=== PATIENT | female | born 1980 | race Caucasian/White ===

== ENCOUNTER 2023-09-15 09:21 | Outpatient (AMB) | payer OTHER, SELFPAY ==
--- NOTE | 2023-09-15 09:22 | A.OFFVIS_ITS ---
Intake Vital Signs 09/15/23 09:37 Height 5 ft 9 in Weight 159 lb 4 oz BMI 23.5 BP 112/90 H Blood Pressure Location Lt brachial Position Sitting Respiration 14 Pulse 92 Pulse Source Pulse Oximeter Pulse Oximetry (%) 98 Oxygen Delivery Method Room Air Intake Visit Reasons: ENP-Lower Ex Bi Paresthesia-lvm Intake Note: Pt presents to the office for new patient evaluation for bilateral lower extremity paresthesia. Pt reports she had right inguinal herniarrhaphy in December and has since noted some muscle issues . She describes the feeling of someone pulling me from the back . She has back muscle spasms, worse when walking or going up stairs lasting a few seconds. She also c/o tremors of jonelle upper extremities and often feels as if her muscles are fatigued as if she'd exercised. She was evaluated by [facility] earlier this month. Allergies No Known Allergies Allergy (Verified 09/15/23 09:33) Medication List - Last Reconciled 09/15/23 by Kennedi James MD cholecalciferol (vitamin D3) 10 mcg PO DAILY escitalopram oxalate 5 mg PO DAILY propranolol 10 mg PO BID PRN HPI HPI Comments History of Present Illness Details 43y/o female comes for evaluation of jonelle ateral sensory symptoms in bilateral feet . It started 1 month after her right inguinal hernia surgery in Dec 2022. She was evaluated with MRI C spine LS spine and EMG which were all unremarkable.The sensations were mostly episodic and was at rest and in the later part of the day. she is not sure whether movement helped. But in February 2023 she started working out and she felt her symptoms decreased and resolved now. Now she c/o tremors in her hands - about 2 months ago. when she holds a spoon she has tremors.she also feels neck tremors , lips tremors etc. The tremors are with posture and action. It does not affect any activities but concerned that it could be parkinsons disease. she has h/o anxiety and tries to manages with yoga and meditation. 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 she has tachycardia and was seen by inside trucker and suggested betablockers [facility] Medical History (Updated 09/15/23 @ 10:43 by Kennedi James MD) Paresthesias Coarse tremors Anxiety Tachycardia Vasovagal syncope GERD (gastroesophageal reflux disease) Surgical History History of removal of ovarian cyst History of inguinal herniorrhaphy Family History Father No problems noted. Mother Hypotension Arthritis Social History Household Members: Spouse and Children Housing: Apartment Alcohol intake: current Patient Tobacco Use Status: Never used Tobacco Review of Systems Card Reports rapid heart rate Neuro Reports tremor(s) Psych Reports anxiety Physical Exam Vital Signs: Last Vital Signs Pulse 92 09/15/23 09:37 Resp 14 09/15/23 09:37 BP 112/90 H 09/15/23 09:37 Pulse Ox 98 09/15/23 09:37 Oxygen Delivery Method Room Air 09/15/23 09:37 BMI result Body Mass Index 23.5 Const General: cooperative, healthy appearing and comfortable Nutritional Appearance: average body habitus Orientation/consciousness: patient oriented x3 Limitations: no limitations Eyes Pupils: Equal, round and reactive pupils present Neuro Other: mild tightness in neck muscles with mild tilt to right No tremors Good facial expression and blink General: patient oriented x3, gait normal, tone normal, moves all extremities and no focal motor deficits Cranial nerves: Yes Facial sensation intact/muscles of mastication intact, Yes Equal, round and reactive pupils present, Yes Bilaterally intact EOM present, Yes Nystagmus not present, Yes Normal facial strength present, Yes Midline to ngue present and Yes Symmetric palate elevation present Cognition (Neuro): normal cognition Gait exam (Neuro): Normal gait present Motor exam (neuro): 5/5 motor strength present throughout and Normal motor muscle tone present throughout Deep tendon reflexes (DTR's): Right triceps reflex intensity grade: 2+, Left triceps reflex intensity grade: 2+, Rt Biceps (C5, C6): 2+, Left biceps reflex intensity grade: 2+, Right brachioradialis reflex intensity grade: 2+, Left brachioradialis reflex intensity grade: 2+, Right patellar reflex intensity grade: 2+ and Left patellar reflex intensity grade: 2+ Coordination: [id number] test normal Psych Affect: Anxious affect present Assessment & Plan Assessment & Plan (1) Coarse tremors: Comment: exaggerated physiological- mild tremors Code(s): G25.2 - Other specified forms of tremor (2) Paresthesias: Comment: resolved, her MRI C spine LS spine ad EMG were unremarkable Code(s): R20.2 - Paresthesia of skin Plan Her tremors are likely related to anxiety . No evidence of parkinsons disease I will trial her on propranolol 10mg PRN for tremors and escitalopram 5mg qd for anxiety Medications: New propranolol 10 mg PO BID PRN 60 tabs 2RF tremors escitalopram oxalate 5 mg PO DAILY 30 tabs 6RF Coding Level of Care Code New Pt Level 4 (91184) Diagnoses Coarse tremors G25.2 Paresthesias R20.2
[2023-09-15 09:37] VITALS: BP 112/90; PULSE 92; RESP 14; O2SAT 98; BMI 23.5
== END 2023-09-15 10:07 | disposition home or self-care (01) ==
PROVIDERS: Visit Provider Psychiatry & Neurology Neurology
DX: G25.2 Other specified forms of tremor (principal); R20.2 Paresthesia of skin
CPT/HCPCS: 99204

== ENCOUNTER → 2023-09-15 09:21 | Outpatient (BNVA) | payer OTHER, SELFPAY | PROVIDERS: Visit Provider Psychiatry & Neurology Neurology ==

== ENCOUNTER 2024-03-22 09:18 | Outpatient (AMB) | payer OTHER, SELFPAY ==
--- NOTE | 2024-03-22 09:33 | MHC.OFFVIS ---
Vital Signs 03/22/24 09:34 Height 5 ft 9 in Weight 167 lb BMI 24.7 BP 112/78 Blood Pressure Location Lt brachial Position Sitting Respiration 16 Pulse 81 Pulse Source Pulse Oximeter Pulse Oximetry (%) 99 Oxygen Delivery Method Room Air Intake Visit Reasons: 6M follow up-CONF Intake Note: Pt presents for 6 month follow up for tremors. Engraver Pantograph Required: No Allergies No Known Allergies Allergy (Verified 03/22/24 09:34) HPI Comments Details: 44y/o female comes for follow up. Her tremors are mild . she uses propranolol as needed and she has used it on an average of 2 times a month she tried lexapro for 2 mths and stopped. she started yoga and also a supplement Haritaki . she is anxious about drooling and worries that she has Parkinsons disease. [facility] Medical History Paresthesias Coarse tremors Anxiety Tachycardia Vasovagal syncope GERD (gastroesophageal reflux disease) Surgical History History of removal of ovarian cyst History of inguinal herniorrhaphy Family History Father No problems noted. Mother Hypotension Arthritis Social History Household Members: Spouse and Children Housing: Apartment Alcohol intake: current Patient Tobacco Use Status: Never used Tobacco Physical Exam Vital Signs: Last Vital Signs Pulse 81 03/22/24 09:34 Resp 16 03/22/24 09:34 BP 112/78 03/22/24 09:34 Pulse Ox 99 03/22/24 09:34 Oxygen Delivery Method Room Air 03/22/24 09:34 BMI result Body Mass Index 24.7 Const General: cooperative, healthy appearing and comfortable Nutritional Appearance: average body habitus Orientation/consciousness: patient oriented x3 Limitations: no limitations Eyes Pupils: Equal, round and reactive pupils present Neuro Other: mild tightness in neck muscles with mild tilt to right No tremors Good facial expression and blink General: patient oriented x3, gait normal, tone normal, moves all extremities and no focal motor deficits Cranial nerves: Yes Facial sensation intact/muscles of mastication intact, Yes Equal, round and reactive pupils present, Yes Bilaterally intact EOM present, Yes Nystagmus not present, Yes Normal facial strength present, Yes Midline tongue present and Yes Symmetric palate elevation present Cognition (Neuro): normal cognition Gait exam (Neuro): Normal gait present Motor exam (neuro): 5/5 motor strength present throughout and Normal motor muscle tone present throughout Coordination: [id number] test normal Psych Affect: Anxious affect present Assessment & Plan Assessment & Plan (1) Coarse tremors: Comment: exaggerated physiological- mild tremors Code(s): G25.2 - Other specified forms of tremor Category: Medical (2) Paresthesias: Comment: resolved, her MRI C spine LS spine ad EMG were unremarkable Code(s): R20.2 - Paresthesia of skin Category: Medical Plan Her tremors are likely related to anxiety . No evidence of parkinsons disease Continue propranolol 10mg PRN for tremors and psychotherapy .
[2024-03-22 09:34] VITALS: BP 112/78; PULSE 81; RESP 16; O2SAT 99; BMI 24.7
== END 2024-03-22 09:55 | disposition home or self-care (01) ==
PROVIDERS: PCP Family Medicine; Visit Provider Psychiatry & Neurology Neurology
DX: G25.2 Other specified forms of tremor (principal); R20.2 Paresthesia of skin
CPT/HCPCS: 99214

== ENCOUNTER → 2024-03-22 09:18 | Outpatient (BNVA) | payer OTHER, SELFPAY | PROVIDERS: PCP Family Medicine; Visit Provider Psychiatry & Neurology Neurology ==